=== PATIENT | female | born 1995 | race African-American/Black ===

== ENCOUNTER 2019-02-19 13:20 | Emergency (ER) | payer OTHER ==
[2019-02-19 13:30] VITALS: BP 126/68
--- NOTE | 2019-02-19 14:03 | RAD ---
EXAM: Right shoulder, 3 views. HISTORY: Pain after lifting weight. COMPARISON: None. FINDINGS: 3 views of the right shoulder obtained. There is no fracture, dislocation or subluxation. There is a bone island within the humeral head. IMPRESSION: No acute osseous finding Electronically signed by: Cherie Be MD (02/19/2019 2:00 PM) [id number]
--- NOTE | 2019-02-19 14:28 | PHYS DOC ---
Past History Past Medical History: No Pertinent History Past Surgical History: No Surgical History Alcohol Use: Occasionally Drug Use: None Adult General Chief Complaint Chief Complaint: SHOULDER INJURY [facility] HPI Patient is a 23-year-old female who presented to ER today for evaluation of right shoulder pain after lifting weight during her training. She had pain at the right shoulder whenever she left her right shoulder up to 90, the pain radiated to her right elbow. Patient denies falling down on her right shoulder. Symptoms have been going on for a few days. She denies any numbness or weakness in her right upper extremity. She denies any neck pain. aLL OTHER ros IS NEGATIVE UNLESS OTHERWISE NOTED IN hpi Review of Systems Review of Systems See above Allergies Allergies Allergies Coded Allergies Type Severity Reaction Last Updated Verified No Known Drug Allergies 02/19/19 No Physical Exam Physical Exam See above Constitutional: Well developed, well nourished, no acute distress, non-toxic appearance. [] HENT: Normocephalic, atraumatic, bilateral external ears normal, oropharynx moist, no oral exudates, nose normal. [] Eyes: PERRLA, EOMI, conjunctiva normal, no discharge. [] Neck: Normal range of motion, no tenderness, supple, no stridor. [] Cardiovascular:Heart rate regular rhythm, no murmur [] Lungs & Thorax: Bilateral breath sounds clear to auscultation [] Abdomen: Bowel sounds normal, soft, no tenderness, no masses, no pulsatile masses. [] Skin: Warm, dry, no erythema, no rash. [] Back: No tenderness, no CVA tenderness. [] Extremities: The right shoulder is with full range of motion but tender to palpation at the AC JOINT AREA. no cyanosis, no clubbing, ROM intact, no edema. [] Neurologic: Alert and oriented X 3, normal motor function, normal sensory function, no focal deficits noted. [] Psychologic: Affect normal, judgement normal, mood normal. [] Current Patient Data Vital Signs Vital Signs Date Time Temp Pulse Resp B/P (MAP) Pulse Ox O2 Delivery O2 Flow Rate FiO2 02/19/19 13:30 66 18 96 Room Air EKG EKG [] Radiology/Procedures Radiology/Procedures [][address] [address] IMAGING REPORT Signed PATIENT: ANNELIESE MONGE EACCOUNT: [id number] : 1995 LOCATION: ER AGE: 23 SEX: F EXAM STATUS: REG ER ORD. PHYSICIAN: BORIS CASTRO DO REASON: RIGHT SHOULDER PAIN AFTER LIFTING WEIGHT PROCEDURE: SHOULDER 2+V RIGHT EXAM: Right shoulder, 3 views. HISTORY: Pain after lifting weight. COMPARISON: None. FINDINGS: 3 views of the right shoulder obtained. There is no fracture, dislocation or subluxation. There is a bone island within the humeral head. IMPRESSION: No acute osseous finding Electronically signed by: Cherie Brennan MD (02/19/2019 2:00 PM) [facility] DICTATED AND SIGNED BY: CHERIE BRENNAN MD DATE: 02/19/19 1400 CC: XIOMY MILTON; BORIS CASTRO DO ~ Course & Med Decision Making Course & Med Decision Making Pertinent Labs and Imaging studies reviewed. (See chart for details) [] Dragon Disclaimer Dragon Disclaimer This electronic medical record was generated, in whole or in part, using a voice recognition dictation system. Departure Departure: Impression: Primary Impression: Right shoulder strain Disposition: HOME, SELF-CARE Condition: STABLE Referrals: PCPXIOMY (PCP) PLEASE FOLLOW UP WITH YOUR DOCTOR FOR OUTPATIENT EVALUATION WITH MRI OF YOUR RIGHT SHOULDER. Patient Instructions: Shoulder Sprain BORIS CASTRO DO Feb 19, 2019 14:28
== END 2019-02-19 14:44 | disposition home or self-care (01) ==
LOC: ER 13:20
DX: S46.911A Strain of unspecified muscle, fascia and tendon at shoulder and upper arm level, right arm, initial encounter (principal); X50.9XXA Other and unspecified overexertion or strenuous movements or postures, initial encounter; Y93.89 Activity, other specified; Y92.89 Other specified places as the place of occurrence of the external cause; Y99.8 Other external cause status
CPT/HCPCS: 73030; 99284

== ENCOUNTER 2020-08-04 15:19 | Emergency (ER) | payer OTHER ==
[~2020-08-04] VITALS: Ht 170.2 cm; Wt 93.1 kg
[2020-08-04 15:39] VITALS: BP 132/78
[2020-08-04 17:20] LABS: BILIRUBIN,URINE NEG (NEG); CLARITY,URINE CLEAR; COLOR,URINE YELLOW; GLUCOSE,URINE NEG (NEG); NITRITE,URINE NEG (NEG); UROBILINOGEN,URINE 0.2 mg/dL (0.2 mg/dL)
[2020-08-04 17:23] LABS: BACTERIA,URINE FEW /HPF (0-FEW); RBC,URINE 0 /HPF (0-2); SQUAMOUS EPITHELIAL CELL,UR FEW /LPF; WBC,URINE OCC /HPF (0-4)
--- NOTE | 2020-08-04 17:49 | PHYS DOC ---
Past History Past Medical History: No Pertinent History (LON HYMAN APRN) Past Surgical History: No Surgical History (LON HYMAN APRN) Alcohol Use: Occasionally Drug Use: None (OLN HYMAN APRN) General Adult EDM: Chief Complaint: ABDOMINAL PAIN HPI: HPI: Patient is a 25-year-old female who presents with lower abdominal pain and cramping for the last 2 weeks. States "I was masturbating and after I had an orgasm, I had a shooting cramping pain". Patient denies any penetration. Patient states since then she has had intermittent, cramps and nausea. Patient denies vomiting, diarrhea, fevers. Last menstrual period was 07/13. Denies health history. (LON HYMAN APRN) Review of Systems: Review of Systems: Constitutional: Denies fever or chills Eyes: Denies change in visual acuity HENT: Denies nasal congestion or sore throat Respiratory: Denies cough or shortness of breath Cardiovascular: Denies chest pain or edema GI: Reports lower abdominal pain, nausea. Denies vomiting, bloody stools or diarrhea : Denies dysuria Musculoskeletal: Denies back pain or joint pain Integument: Denies rash Neurologic: Denies headache, focal weakness or sensory changes Endocrine: Denies polyuria or polydipsia Lymphatic: Denies swollen glands Psychiatric: Denies depression or anxiety (LON HYMAN APRN) Allergies: Allergies: Allergies Coded Allergies Type Severity Reaction Last Updated Verified No Known Drug Allergies 02/19/19 No (LON HYMAN APRN) Physical Exam: PE: Constitutional: Well developed, well nourished, no acute distress, non-toxic appearance. [] HENT: Normocephalic, atraumatic, bilateral external ears normal, oropharynx moist, no oral exudates, nose normal. [] Eyes: PERRLA, EOMI, conjunctiva normal, no discharge. [] Neck: Normal range of motion, no tenderness, supple, no stridor. [] Cardiovascular:Heart rate regular rhythm, no murmur [] Lungs & Thorax: Bilateral breath sounds clear to auscultation [] Abdomen: Bowel sounds normal, soft, lower abdominal tenderness Skin: Warm, dry, no erythema, no rash. [] Back: No tenderness, no CVA tenderness. [] Extremities: No tenderness, no cyanosis, no clubbing, ROM intact, no edema. [] Neurologic: Alert and oriented X 3, normal motor function, normal sensory function, no focal deficits noted. [] Psychologic: Affect normal, judgement normal, mood normal. [] (LON HYMAN APRN) Current Patient Data: Labs: Laboratory Tests Test 08/04/20 15:42 08/04/20 16:30 POC Urine HCG, Qualitative hcg negative (Negative) Urine Collection Type Unknown Urine Color Yellow Urine Clarity Clear Urine pH 7.0 Urine Specific [place] 1.010 Urine Protein Neg (NEG-TRACE) Urine Glucose (UA) Neg mg/dL (NEG) Urine Ketones (Stick) Neg mg/dL (NEG) Urine Blood Neg (NEG) Urine Nitrite Neg (NEG) Urine Bilirubin Neg (NEG) Urine Urobilinogen Dipstick 0.2 mg/dL (0.2 mg/dL) Urine Leukocyte Esterase Neg (NEG) Urine RBC 0 /HPF (0-2) Urine WBC Occ /HPF (0-4) Urine Squamous Epithelial Cells Few /LPF Urine Bacteria Few /HPF (0-FEW) Vital Signs: Vital Signs Date Time Temp Pulse Resp B/P (MAP) Pulse Ox O2 Delivery O2 Flow Rate FiO2 08/04/20 15:39 98.8 94 16 132/78 (96) 99 Room Air (LON HYMAN SINGLE STAYER OPERATOR) EKG: EKG: [] (LON HYMAN APRN) Radiology/Procedures: Radiology/Procedures: []Exam: CT of abdomen and pelvis without contrast INDICATION: Lower abdominal pain TECHNIQUE: Sequential axial images through the abdomen and pelvis obtained without IV contrast. Sagittal and coronal reformatted images were reconstructed from the axial data and reviewed. Exposure: One or more of the following in the visualized dose reduction techniques were utilized for this examination: 1. Automated exposure control 2. Adjustment of the MA and/or KV according to patient size 3. Use of iterative of reconstructive technique Comparisons: None FINDINGS: Heart size is normal. No pericardial effusion. Visualized lung bases clear. No pleural effusion. Evaluation solid organs is limited secondary to noncontrast technique. Liver, spleen, pancreas, gallbladder and adrenals are unremarkable. No perinephric inflammation or hydronephrosis. No renal or ureteral calculi are identified. Bladder is partially distended and not well evaluated. Uterus not enlarged. Cys tic lesions at the right adnexa measuring up to 4.9 x 2.9 cm. Small amount of free fluid noted in the pelvis. Moderate amount of stool noted in the colon. Appendix is normal. Small bowel is unremarkable. Abdominal aorta has a normal course and caliber. No enlarged intra-abdominal lymph nodes are identified. No suspicious osseous lesions or acute fractures. IMPRESSION: 1. Cystic lesions at the adnexa bilaterally greater on the right measuring up to 4.9 x 2.9 cm favored represent cyst within the ovary incompletely characterized on CT. 2. Small amount of free fluid noted in the pelvis which is nonspecific and may be physiologic. (LON HYMAN APRN) Heart Score: C/O Chest Pain: No Risk Factors: Risk Factors: DM, Current or recent (<one month) smoker, HTN, HLP, family history of CAD, obesity. Risk Scores: Score 0 - 3: 2.5% MACE over next 6 weeks - Discharge Home Score 4 - 6: 20.3% MACE over next 6 weeks - Admit for Clinical Observation Score 7 - 10: 72.7% MACE over next 6 weeks - Early Invasive Strategies (LON HYMAN APRN) Course & Med Decision Making: Course & Med Decision Making Pertinent Labs and Imaging studies reviewed. (See chart for details) [] 25-year-old female who presents with lower abdominal pain for 2 weeks. Patient reports pain started after she had an orgasm while masturbating. Patient denies vaginal penetration or trauma. CT of abdomen and pelvis ordered to rule out any acute abnormalities. Zofran given for nausea. 600mg Ibuprofen given for pain. Patient's denying dysuria or frequency. UA is negative for bacteria. CT shows Cystic lesions at the right adnexa with small amount of free fluid noted in the pelvis. Discussed CT results with patient and follow-up with [facility]. Patient states that she will call her PCP tomorrow and get a appointment scheduled. Patient reports that her pain has improved after ibuprofen. Advised patient she can take ibuprofen and Tylenol at home for discomfort. Patient verbalized she understood discharge plan. (LON HYMAN APRN) Dragon Disclaimer: Dragon Disclaimer: This electronic medical record was generated, in whole or in part, using a voice recognition dictation system. (LON HYMAN APRN) Attending Co-Sign The patient was seen and interviewed as well as examined at the bedside. The chart was reviewed. The case was discussed. Agree with the plan of care. (HERRERA SHAW DO) Departure Departure: Impression: Primary Impression: Ovarian cyst Qualified Codes: N83.201 - Unspecified ovarian cyst, right side Disposition: HOME / SELF CARE / HOMELESS Condition: STABLE Referrals: MARIUSZ RONDON DO, MPH (PCP) Patient Instructions: Ovarian Cyst, [id number] Additional Instructions: You are seen in the emergency room for lower abdominal pain. CT of your abdomen pelvis showed ovarian cyst. Please call your PCP tomorrow and make an appointment for a follow-up for further evaluation and management. Take ibuprofen and Tylenol at home for discomfort. Return to the emergency room if you have worsening symptoms or concerns. EMERGENCY DEPARTMENT GENERAL DISCHARGE INSTRUCTIONS Thank you for coming to [facility] (ED) today and trusting us with you care. We trust that you had a positivie experience in our Emergency Department. If you wish to speak to the department management, you may call the director at [phone]. YOUR FOLLOW UP INSTRUCTIONS ARE FOLLOWS: 1. Do you have a private Doctor? If you do not have a private doctor, please ask for a resource list of physicians or clinics that may be able to assist you with follow up care. 2. The Emergency Physician has interpreted your x-rays. The X-Ray specialist will also review them. If there is a change in the findings, you will be notified in 48 hours when at all possible. 3. A lab test or culture has been done, your results will be reviewed and you will be notified if you need a change in treatment. ADDITIONAL INSTRUCTIONS AND INFORMATION: 1. Your care today has been supervised by a physician who is specially trained in emergency care. Many problems require more than one evaluation for a complete diagnosis and treatment. We recommend that you schedule your follow up appointment as recommended to ensure complete treatment of you illness or injury. If you are unable to obtain follow up care and continue to have a problem, or if your condition worsens, we recommend that you return to the ED. 2. We are not able to safely determine your condition over the phone nor are we able to give sound medical advice over the phone. For these safety reasons, if you call for medical advice we will ask you to come to the ED for further evaluation. 3. If you have any questions regarding these discharge instructions please call the ED at [phone]. SAFETY INFORMATION: In the interest of safety, wellness, and injury prevention; we encourage you to wear your sealbelt, if you smoke; quite smoking, and we encourage family to use a protective helmet for bicycling and other sporting events that present an increased risk for head injury. IF YOUR SYMPTOMS WORSEN OR NEW SYMPTOMS DEVELOP, OR YOU HAVE CONCERNS ABOUT YOUR CONDITION; OR IF YOUR CONDITION WORSENS WHILE YOU ARE WAITING FOR YOUR FOLLOW UP APPOINTMENT; EITHER CONTACT YOUR PRIMARY CARE DOCTOR, THE PHYSICIAN WHOSE NAME AND NUMBER YOU WERE GIVEN, OR RETURN TO THE ED IMMEDIATELY. LON HYMAN APRN Aug 04, 2020 17:49 HERRERA SHAW DO Aug 05, 2020 06:20
[2020-08-04] MEDS ORDERED: IBUPROFEN 600 MG TABLET. PO ONE (18:00)
[2020-08-04] MEDS ORDERED: ONDANSETRON PF 4 MG/2 ML VIAL. IVP ONE (18:00)
[2020-08-04] MEDS ORDERED: ONDANSETRON ODT 4 MG TAB.RAPDIS ONE (18:13)
--- NOTE | 2020-08-04 18:28 | RAD ---
Exam: CT of abdomen and pelvis without contrast INDICATION: Lower abdominal pain TECHNIQUE: Sequential axial images through the abdomen and pelvis obtained without IV contrast. Sagit callie and coronal reformatted images were reconstructed from the axial data and reviewed. Exposure: One or more of the following in the visualized dose reduction techniques were utilized for this examination: 1. Automated exposure control 2. Adjustment of the MA and/or KV according to patient size 3. Use of iterative of reconstructive technique Comparisons: None FINDINGS: Heart size is normal. No pericardial effusion. Visualized lung bases clear. No pleural effusion. Evaluation solid organs is limited secondary to noncontrast technique. Liver, spleen, pancreas, gallbladder and adrenals are unremarkable. No perinephric inflammation or hydronephrosis. No renal or ureteral calculi are identified. Bladder is partially distended and not well evaluated. Uterus not enlarged. Cystic lesions at the rig ht adnexa measuring up to 4.9 x 2.9 cm. Small amount of free fluid noted in the pelvis. Moderate amount of stool noted in the colon. Appendix is normal. Small bowel is unremarkable. Abdominal aorta has a normal course and caliber. No enlarged intra-abdominal lymph nodes are identified. No suspicious osseous lesions or acute fractures. IMPRESSION: 1. Cystic lesions at the adnexa bilaterally greater on the right measuring up to 4.9 x 2.9 cm favore d represent cyst within the ovary incompletely characterized on CT. 2. Small amount of free fluid noted in the pelvis which is nonspecific and may be physiologic. Electronically signed by: Rafita Flores MD (08/04/2020 6:25 PM) [facility]
== END 2020-08-04 19:17 | disposition home or self-care (01) ==
LOC: ER 15:19
DX: N83.201 Unspecified ovarian cyst, right side (principal)
CPT/HCPCS: 74176; 81001; 81025; 99284-25